=== PATIENT | male | born 1985 | race Caucasian/White ===

== ENCOUNTER 2023-07-30 17:37 | Emergency (ER) | payer BC, MEDICAID ==
[2023-07-30] MEDS ORDERED: amLODIPine 5 MG Tab PO ONE (18:11)
== END 2023-07-30 19:30 | disposition home or self-care (01) ==
LOC: JD.ED 17:37
DX: L03.116 Cellulitis of left lower limb (principal); I10 Essential (primary) hypertension; F17.210 Nicotine dependence, cigarettes, uncomplicated; Z90.49 Acquired absence of other specified parts of digestive tract
CPT/HCPCS: 93971; 99283; A9270

== ENCOUNTER 2024-02-26 16:34 | Emergency (ER) | payer MEDICAID ==
[2024-02-26] MEDS ORDERED: Proparacaine 0.5% Ophth Soln 15 ML Bottle EYEBOTH ONE (19:17)
[2024-02-26] MEDS: Proparacaine 0.5% Ophth Soln 15 ML Bottle EYERT ONE (20:12)
[2024-02-26] MEDS ORDERED: Ketorolac 0.5% Ophth Soln 5 ML Bottle EYERT ONE (20:18)
[2024-02-26] MEDS ORDERED: Ciprofloxacin 0.3% Ophth Soln 5 ML Bottle EYERT ONE (20:19)
== END 2024-02-26 20:31 | disposition home or self-care (01) ==
LOC: JD.ED 16:34
DX: T15.01XA Foreign body in cornea, right eye, initial encounter (principal); I10 Essential (primary) hypertension; Z90.49 Acquired absence of other specified parts of digestive tract; W45.8XXA Other foreign body or object entering through skin, initial encounter
CPT/HCPCS: 99283; A9270; J3490